=== PATIENT | male | born 1955 | race Caucasian/White ===

== ENCOUNTER 2016-06-03 15:41 | Inpatient (IN) | payer MEDICARE, OTHER ==
[~2016-06-03] VITALS: Ht 182.9 cm; Wt 72.6 kg
[~2016-06-03 15:41] MED LIST: METHADONE HCL5 MG PO; OXYCONTIN10 MG ORAL
--- NOTE | 2016-06-03 16:06 | Emergency Room Report ---
History of Present Illness General Chief Complaint: Overdose Source: Patient, EMS Present Illness HPI Patient is a 60-year-old male brought in by ambulance after reported overdose on methamphetamine and GHB. The patient reportedly ingested 1 hour prior to arrival. History was obtained from EMS. The patient was noted to have prior history of HIV. He has no known drug allergies. Patient was started on supplemental oxygen as well as a nasal trumpet. Allergies: Coded Allergies: No Known Allergies (Unverified , 08/16/15) Patient History Past Medical History: see triage record Reviewed Nursing Documentation: PMH: Agreed, PSxH: Agreed Review of Systems All Other Systems: negative except mentioned in HPI Physical Exam Vital Signs Date Time Temp Pulse Resp B/P Pulse Ox O2 Delivery O2 Flow Rate FiO2 06/03/16 15:39 97.5 60 16 121/76 100 Simple Mask Sp02 EP Interpretation: reviewed, normal Head: normocephalic, atraumatic ENT: other Neck: normal inspection, full range of motion, supple, no bony tend Respiratory: normal inspection, lungs clear, normal breath sounds, no respiratory distress, no retraction, no wheezing Cardiovascular #1: regular rate, rhythm, no edema Gastrointestinal: normal inspection, normal bowel sounds, non tender, soft, no guarding, no hernia Genitourinary: no CVA tenderness Musculoskeletal: normal inspection, back normal, normal range of motion Neurologic: other - GCS [id number] Psychiatric: normal inspection, judgement/insight normal, mood/affect normal Skin: normal inspection, normal color, no rash Procedures Critical Care Time Critical Care Time Patient had a critical medical condition which untreated could potentially result in life or limb threatening injury. Total critical care time excluding procedures approximately 45 minutes. Medical Decision Making Diagnostic Impression: Primary Impression: Narcotic overdose Additional Impression: HIV (human immunodeficiency virus infection) ER Course Patient presented for overdose. The differential diagnosis included was not limited to hypoglycemia, toxic ingestion, and aspirin overdose, suicide attempt among others. The patient was noted to have an intact gag reflex. The patient was reportedly ingested GHB and appears to be somewhat altered. The patient was given IV Narcan.The patient was given IV fluids. The patient appeared to have some improvement in his gag reflex during the time in emergency department. Dr. Andrea Conti was contacted for inpatient management due to the patient's alteration of mental status. Labs Test 06/03/16 15:56 06/03/16 16:11 06/03/16 17:20 06/03/16 20:13 Arterial Blood pH 7.370 (7.350-7.450) Arterial Blood Partial Pressure CO2 34.4 mmHg (35.0-45.0) Arterial Blood Partial Pressure O2 99.5 mmHg (75.0-100.0) Arterial Blood HCO3 19.6 mmol/L (22.0-26.0) Arterial Blood Oxygen Saturation 96.5 % (92.0-98.0) Arterial Blood Base Excess -4.6 Nate Test Positive White Blood Count 9.8 K/UL (4.8-10.8) Red Blood Count 4.96 M/UL (4.70-6.10) Hemoglobin 15.6 G/DL (14.2-18.0) Hematocrit 49.1 % (42.0-52.0) Mean Corpuscular Volume 99 FL (80-99) Mean Corpuscular Hemoglobin 31.4 PG (27.0-31.0) Mean Corpuscular Hemoglobin Concent 31.7 G/DL (32.0-36.0) Red Cell Distribution Width 14.7 % (11.6-14.8) Platelet Count 763 K/UL (150-450) Mean Platelet Volume 4.5 FL (6.5-10.1) Neutrophils (%) (Auto) 63.6 % (45.0-75.0) Lymphocytes (%) (Auto) 23.1 % (20.0-45.0) Monocytes (%) (Auto) 12.2 % (1.0-10.0) Eosinophils (%) (Auto) 0.1 % (0.0-3.0) Basophils (%) (Auto) 1.1 % (0.0-2.0) Sodium Level 138 mEQ/L (135-145) Potassium Level 4.6 mEQ/L (3.4-4.9) Chloride Level 95 mEQ/L (98-107) Carbon Dioxide Level 21 mEQ/L (20-30) Anion Gap 22 (5-15) Blood Urea Nitrogen 25 mg/dL (7-23) Creatinine 1.9 mg/dL (0.7-1.2) Estimat Glomerular Filtration Rate 36.3 mL/min (>60) Glucose Level 102 mg/dL (74-106) Calcium Level 10.0 mg/dL (8.6-10.2) Total Bilirubin 0.6 mg/dL (0.0-1.2) Direct Bilirubin 0.1 mg/dL (0.1-0.3) Aspartate Amino Transf (AST/SGOT) 55 U/L (5-40) Alanine Aminotransferase (ALT/SGPT) 42 U/L (3-41) Alkaline Phosphatase 62 U/L (40-129) Total Creatine Kinase 293 U/L (38-174) Total Protein 7.8 g/dL (6.6-8.7) Albumin 4.3 g/dL (3.5-5.2) Serum Alcohol < 10 mg/dL Urine Opiates Screen Negative (NEGATIVE) Urine Barbiturates Screen Negative (NEGATIVE) Phencyclidine (PCP) Screen Negative (NEGATIVE) Urine Amphetamines Screen Positive (NEGATIVE) Urine Benzodiazepines Screen Positive (NEGATIVE) Urine Cocaine Screen Negative (NEGATIVE) Urine Marijuana (THC) Screen Negative (NEGATIVE) Lactic Acid Level 1.90 mmol/L (0.66-2.22) Last Vital Signs Date Time Temp Pulse Resp B/P Pulse Ox O2 Delivery O2 Flow Rate FiO2 06/03/16 15:39 97.5 60 16 121/76 100 Simple Mask Status: unchanged Disposition: ADMITTED INPATIENT Condition: Critical Ke So Jun 03, 2016 16:06
[2016-06-03] MEDS ORDERED: Naloxone 1mg/ml 2ml IVP ONE (16:15)
[2016-06-03 16:22] LABS: ABG ALLEN TEST POSITIVE; ABG BASE EXCESS -4.6; ABG PCO2 34.4 mmHg (35.0-45.0)
[2016-06-03 16:31] LABS: BASOPHILS % (AUTO) 1.1 % (0.0-2.0); EOSINOPHILS % (AUTO) 0.1 % (0.0-3.0); LYMPHOCYTES % (AUTO) 23.1 % (20.0-45.0); MEAN CORPUSCULAR HEMOGLOBIN 31.4 PG (27.0-31.0); MEAN CORPUSCULAR HGB CONC 31.7 G/DL (32.0-36.0); MEAN CORPUSCULAR VOLUME 99 FL (80-99); MEAN PLATELET VOLUME 4.5 FL (6.5-10.1); MONOCYTES % (AUTO) 12.2 % (1.0-10.0); NEUTROPHILS % (AUTO) 63.6 % (45.0-75.0); PLATELET COUNT 763 K/UL (150-450); RED BLOOD COUNT 4.96 M/UL (4.70-6.10); RED CELL DISTRIBUTION WIDTH 14.7 % (11.6-14.8); WHITE BLOOD COUNT 9.8 K/UL (4.8-10.8)
[2016-06-03 16:44] LABS: BILIRUBIN,DIRECT 0.1 mg/dL (0.1-0.3); CREATININE 1.9 mg/dL (0.7-1.2); GLOMERULAR FILTRATION RATE 36.3 mL/min (>60); POTASSIUM 4.6 mEQ/L (3.4-4.9); TOTAL PROTEIN 7.8 g/dL (6.6-8.7)
[2016-06-03 18:13] VITALS: BP 141/74
[2016-06-03] MEDS ORDERED: D5 1/2NS w/KCl 20mEq 1,000 ML IV SCH (19:30)
[2016-06-03] MEDS ORDERED: Ampicillin/Sulbactam Sod 3 GM in NS 100 ML IVPB ONE (20:15)
[2016-06-03 22:00] VITALS: BP 122/82
[2016-06-03] MEDS ORDERED: LORazepam Inj 2mg/ml 1ml IV PRN ×2 (22:30→22:35)
[2016-06-03 23:00] VITALS: BP 131/95
[2016-06-03] MEDS ORDERED: D5NS 1,000 ML IV SCH (23:00)
[2016-06-04] VITALS (11 sets, daily range): BP systolic 119–131; BP diastolic 70–86
[2016-06-04 05:21] LABS: CALCIUM 9.2 mg/dL (8.6-10.2); CREATININE 1.3 mg/dL (0.7-1.2); GLOMERULAR FILTRATION RATE 56.3 mL/min (>60); POTASSIUM 4.4 mEQ/L (3.4-4.9)
[2016-06-04 05:56] LABS: BASOPHILS % (AUTO) 0.8 % (0.0-2.0); EOSINOPHILS % (AUTO) 0.1 % (0.0-3.0); LYMPHOCYTES % (AUTO) 17.1 % (20.0-45.0); MEAN CORPUSCULAR HEMOGLOBIN 31.4 PG (27.0-31.0); MEAN CORPUSCULAR HGB CONC 32.1 G/DL (32.0-36.0); MEAN CORPUSCULAR VOLUME 98 FL (80-99); MEAN PLATELET VOLUME 4.4 FL (6.5-10.1); MONOCYTES % (AUTO) 12.9 % (1.0-10.0); NEUTROPHILS % (AUTO) 69.1 % (45.0-75.0); PLATELET COUNT 792 K/UL (150-450); RED BLOOD COUNT 4.84 M/UL (4.70-6.10); RED CELL DISTRIBUTION WIDTH 14.2 % (11.6-14.8); WHITE BLOOD COUNT 15.3 K/UL (4.8-10.8)
--- NOTE | 2016-06-04 08:13 | Consultation ---
Consult Note Consult Note ID CONSULT: Elliot# [id number] Assessment/Plan ASSESSMENT: 60 y/o male with: // Acute leukocytosis, afebrile - suspect stress response. No localizing s/sx infection - risk aspiration // HIV / AIDS, on unknown cART - CD4 reportedly >600, undetectable // GHB overdose, polysubstance abuse // Elevated LFTs / transaminitis - mild // ALKA - improved // Thrombocytosis // Chronic pain syndrome / OA / neuropathy, on methadone // MDD // NKDA // Full Code PLAN: - monitor pt off of ABX - re-start cART if verified, f/u with outpt HIV provider - f/u cultures - monitor CBC, temperatures - monitor BMP - monitor CXR - withdrawal precautions Thanks! Will follow CARINE PUTNAM Jun 04, 2016 08:13
[2016-06-04] MEDS ORDERED: Heparin 5000 units/ml inj SUBQ SCH (09:00)
[2016-06-04] MEDS ORDERED: Pantoprazole Inj IVP SCH (09:00)
[2016-06-04] MEDS ORDERED: Thiamine 100mg tab ORAL SCH (09:00)
--- NOTE | 2016-06-04 09:26 | Consultation ---
Consult Note Assessment/Plan [facility] DICT # [id number] JUJU MELCHOR M.D. Jun 04, 2016 09:26
--- NOTE | 2016-06-04 10:25 | Diagnostic Imaging Report ---
Indication: SOB Technique: One view of the chest Comparison: 08/16/2015 Findings: Previously demonstrated right basilar infiltrate is no longer evident. Lungs and pleural spaces are currently clear. There may be some chronic central bronchial wall thickening. Heart size is upper limits normal Impression: No acute process
[2016-06-04] MEDS ORDERED: 1/2 NS 1000ml IV ONE (10:29)
--- NOTE | 2016-06-04 17:37 | Consultation ---
DATE OF CONSULTATION: 06/04/2016 INFECTIOUS DISEASE CONSULTATION REQUESTING PHYSICIAN: Andrea Conti M.D. REASON FOR CONSULTATION: AIDS. HISTORY OF PRESENT ILLNESS: This is a 60-year-old male with a history of HIV/AIDS, on combination of antiretroviral therapy with a reported CD4 count more than 600 and undetectable, admitted on 06/03/2016 after overdosing on GHB. The patient was initially afebrile without leukocytosis, but developed leukocytosis of 15.3 this morning. He denies fevers, chills, headache, cough, congestion, runny nose, sore throat, chest pain, abdominal pain, nausea, vomiting, diarrhea, dysuria or penile discharge. He received Unasyn x1 in the emergency room. Blood cultures are pending as his chest x-ray. ID now consulted to assist in management. PAST MEDICAL HISTORY: 1. HIV/AIDS, on unknown combination of antiretroviral therapy with a reported CD4 count more than 600 and undetectable. 2. Peripheral neuropathy. 3. Osteoarthritis. 4. Chronic pain syndrome. 5. Depression. PAST SURGICAL HISTORY: None. MEDICATIONS: 1. Status post Unasyn x1. 2. Protonix. 3. Heparin. 4. Multivitamin. 5. Thiamine. 6. Folate. ALLERGIES: No known drug allergies. SOCIAL HISTORY: The patient is homosexual and has a history of polysubstance abuse. FAMILY HISTORY: Noncontributory. REVIEW OF SYSTEMS: As per history of present illness. Ten systems reviewed. All pertinent positives and negatives noted. PHYSICAL EXAMINATION: GENERAL: No apparent distress. Nontoxic appearing. VITAL SIGNS: Maximum temperature 98.9 degrees, blood pressure 129/80, heart rate 110, respiratory rate 14, and saturating 100% on two liters nasal cannula. HEENT: No thrush. CARDIOVASCULAR: Tachycardic. No murmurs. PULMONARY: Clear to auscultation bilaterally. ABDOMEN: Bowel sounds present. Soft, nondistended, and nontender. EXTREMITIES: No edema. NEUROLOGICAL: Alert and oriented x3. Nonfocal. LABORATORY AND DIAGNOSTIC DATA: White blood cell count 15.3 increased from 9.8, hemoglobin 15.2, and platelets 792,000. Sodium 136, potassium 4.4, chloride 100, bicarbonate 22, BUN 25, and and creatinine 1.3. Lactic acid 1.9. Creatine kinase 292. AST 55, ALT 42, and alkaline phosphatase 62. Total bilirubin 0.6. Albumin 4.3. Urine drug screen positive for amphetamines and benzodiazepines. Alcohol level negative. Microbiology, 06/03/2016, blood culture pending. Imaging, 06/03/2016, chest x-ray pending. ASSESSMENT: 1. Acute leukocytosis, afebrile, suspect stress response. No localizing signs or symptoms of infection. He is at risk for aspiration. 2. Human immunodeficiency virus/acquired immune deficiency syndrome, on unknown anti-retroviral therapy with CD4 count reportedly more than 600 and undetectable. 3. GHB overdose and polysubstance abuse. 4. Elevated liver function tests/transaminitis, mild. 5. Acute renal insufficiency, improved. 6. Thrombocytosis. 7. Chronic pain syndrome, on methadone. 8. No known drug allergies. 9. Full Code. PLAN: 1. Monitor the patient off of antibiotics. 2. Restart combination of antiretroviral therapy and follow up with the patient's HIV provider at discharge. 3. Follow up cultures. 4. Monitor CBC and temperatures. 5. Monitor BMP. 6. Monitor chest x-ray. 7. Withdrawal precautions. Thank you. We will follow. Benji Yan M.D. DR: CEE JOB#: [id number] CC: Aundrea Stanton M.D. Arash Alborzi, M.D
--- NOTE | 2016-06-04 19:17 | Consultation ---
DATE OF CONSULTATION: PULMONARY CRITICAL CARE CONSULTATION: REFERRING PHYSICIAN: Andrea Conti M.D. REASON FOR CONSULTATION: Critical care management. HISTORY OF PRESENT ILLNESS: The patient is a 60-year-old male with a history of AIDS and prior overdoses, who presented to the ED one hour after overdosed on methamphetamine and GHB. It is unclear how much he took, but upon arrival in the emergency department, he was confused and then combative. He was able to protect his airway. gag reflex. He was given Narcan, IV fluids without any relief. He also had evidence of acute kidney injury. Decision was made not to intubate, the patient transferred to the ICU and overnight he did well. His white count on admission was 9.8, hemoglobin 15.6, and platelet count 763,000. This morning, white count 15.3. ABG on admission 7.37/34/99/19/96. His creatinine was 1.9, this improved with IV fluids 1.3. His tox screen was positive for amphetamines and benzodiazepines. PAST MEDICAL HISTORY: 1. HIV. 2. Peripheral neuropathy. 3. Arthritis. 4. Chronic pain syndrome on methadone. 5. Major depressive disorder. MEDICATIONS: Prior to admission, medications complete list is unknown, but he is on methadone, oxycodone, and anti-retroviral therapy. Current medications reviewed. ALLERGIES: No known drug allergies. SOCIAL HISTORY: He endorses occasional drug use. Denies any current tobacco or alcohol use. FAMILY HISTORY: Noncontributory. He has a male partner. REVIEW OF SYSTEMS: Negative other than the history of present illness. PHYSICAL EXAMINATION: VITAL SIGNS: Temperature 98.9 degrees, pulse 113, blood pressure 130/71, respiratory 24, and saturating 99% on two liters. GENERAL: He is a well-developed and well-nourished male, in no acute distress. Awake, alert, and oriented x3. HEENT: Normocephalic and atraumatic. Oropharynx is moist. NECK: Supple without lymphadenopathy or jugular venous distention. CHEST: Clear to auscultation bilaterally without wheezing, rales, or rhonchi. HEART: Regular rhythm. No murmurs, rubs, or gallops. ABDOMEN: Soft and nontender. EXTREMITIES: No cyanosis, clubbing, or edema. ANCILLARY DATA: White count 9.8, on admission 15.3, hemoglobin 15.6, and platelet count 763,000. ABG 7.37/34/99/19/96. Sodium 138, potassium 4.6, chloride 95, bicarb 21, BUN 25, creatinine 1.1, GFR is 36.3, glucose 102. Lactic acid 1.9. Calcium 10. Total bilirubin 0.6, direct 0.1, AST 55, ALT 42, alkaline phosphatase 62, CK 293, total protein 7.8, and albumin 4.3. Urine toxicology positive for amphetamines and benzodiazepines. Cultures are pending. Chest x-ray is not available for review to me but per ER doctor, there may be an early perihilar lower left base infiltrate. ASSESSMENT: The patient is a 60-year-old male with a history of acquired immune deficiency syndrome (per reports CD4 count greater than 400) presenting with altered mental status secondary to gamma-hydroxybutyrate and amphetamine overdose. He also has leukocytosis which is likely a stress response versus early pneumonic process (possible aspiration) . Nonetheless, he is markedly improved with intravenous fluids and rest overnight. He is afebrile. Vitals are stable and is actually requesting to be discharged. PROBLEM LIST: 1. Altered mental status secondary to amphetamine and gamma-hydroxybutyrate overdose; resolved. 2. Acute kidney injury likely prerenal; resolved with IV fluids. 3. Mild elevation of transaminases. 4. Leukocytosis likely stress response. 5. Per report possible early pneumonic process, but the patient without any signs or symptoms of respiratory illness. 6. Chronic pain syndrome. 7. Osteoarthritis. 8. Neuropathy. 9. Major depressive disorder. 10. Methadone dependence. TREATMENT PLAN: 1. Continue IV fluid hydration. 2. Monitor mental status. 3. Multivitamin/thiamine/folate. 4. Follow up cultures. 5. Follow up Infectious Disease recommendations and resume anti-retroviral therapy. 6. DVT prophylaxis; heparin subcutaneous. 7. Gastrointestinal prophylaxis; PPI. 8. Follow up renal wrecks. 9. Consider Psychiatry evaluation and social work evaluation. Dr. Conti, thank you for allowing me to assist in the care of your patient. If I may be of any assistance, please do not hesitate to ask. Alec Mcclure M.D. DR: Marielos JOB#: [id number] CC:
--- NOTE | 2016-06-06 13:00 | Discharge Summary ---
Discharge Summary Hospital Course Date of Admission Jun 03, 2016 at 19:23 Date of Discharge Jun 04, 2016 at 10:30 Admitting Diagnosis overdose ghb, hiv HPI Jericho Guillaume is a 60 year old male who was admitted on Jun 03, 2016 at 19:23 for Overdose Ghb, Hiv Hospital Course dc summary dictated # [id number] Discharge Discharge Disposition Patient was discharged to Discharge Diagnoses: Carlos (Noy)Kellie NP Jun 06, 2016 13:00
--- NOTE | 2016-06-07 00:18 | Discharge Summary 2 SIG ---
DATE OF ADMISSION: 06/03/2016 DATE OF DISCHARGE: 06/04/2016- signed against medical advice ADMITTING DIAGNOSES: Include, 1. Narcotic overdose. 2. Polysubstance abuse. 3. Human immunodeficiency virus status. DISCHARGE DIAGNOSES: Include, 1. Acute toxic encephalopathy, resolved. 2. Acute kidney injury, improved. 3. Leukocytosis, likely stress response. 4. Human immunodeficiency virus status. 5. Chronic pain syndrome. 6. Neuropathy. 7. Major depression. HOSPITAL COURSE BY PROBLEM LIST: 60-year-old male, was brought by ambulance after reported overdose on methamphetamines and GHB. Apparently, the patient ingested drugs 1 hour prior to arrival. The patient was unable to provide any history. The patient at that time was started on supplemental oxygen and was able to protect airway. ABG was stable. No need for intubation. The patient was transferred to ICU for close monitoring. Pulmonary consult as well as the ID consults were requested. Urine tox screen was positive for amphetamine and benzodiazepine. Initially, the patient had evidence of acute kidney injury. Creatinine pf 1.9 and BUN 25. Intravenous fluids started. The next day, creatinine down to 1.3. Acute tubular necrosis was likely also related to drug overdose, Upon arrival to emergency room, the patient was afebrile. No leukocytosis, but the next day WBC trended up to 15.3. However, the patient was afebrile. No clinical evidence of infection. Chest x-ray revealed no acute process. According to Infectious Disease doctor, leukocytosis was likely due to stress response. He recommended to keep the patient off antibiotics and observe . HAART therapy restarted. Supplemental oxygen and pulmonary toilet provided as needed. Pain management provided. The patient is chronically on methadone. a Acute toxic encephalopathy resolved as drugs wear off and the next day the patient signed against medical advice despite nurses advice to wait for the doctor. Upon signing agains medical advice the patient was awake, alert, and oriented. Vital signs were stable. Patient was told about risks and consequences of signing against medical advice, however he still insisted on signing. Prior to leaving, th patient was counseled on abstinence from the street drugs. Andrea Conti M.D. I have been assigned to dictate discharge summary on this account and I was not involved in the patient's management. Kellie Stephensalba NKonstantinPKonstantin DR: JARVIS JOB#: [id number] CC: YRN
--- NOTE | 2016-06-10 10:31 | Cardiology Report ---
APPROVED REPORT EKG Measurement Heart [id number] FL [id number] Sinus bradycardia Otherwise normal ECG
== END 2016-06-04 10:30 | disposition left against medical advice (07) | DRG 917 ==
LOC: ENRESERVDT → ENRESERVTM → EDBD 15:41 → EMR 16:26 → ICU 19:23 → EDBEDREQ 21:47
DX: T43.621A Poisoning by amphetamines, accidental (unintentional), initial encounter (principal); G92 Toxic encephalopathy; B20 Human immunodeficiency virus [HIV] disease; N17.9 Acute kidney failure, unspecified; T41.291A Poisoning by other general anesthetics, accidental (unintentional), initial encounter; G89.4 Chronic pain syndrome; G62.9 Polyneuropathy, unspecified; F32.9 Major depressive disorder, single episode, unspecified; F19.10 Other psychoactive substance abuse, uncomplicated; M19.90 Unspecified osteoarthritis, unspecified site; Z79.891 Long term (current) use of opiate analgesic
CPT/HCPCS: 36415; 36600; 71010; 80048; 80076; 80300; 80329; 82550; 82803; 82962; 83605; 85025; 87040; 87081; 93005; J2310

== ENCOUNTER 2018-10-21 05:23 | Inpatient (IN) | payer MEDICARE, OTHER ==
[~2018-10-21] VITALS: Ht 185.4 cm; Wt 81.6 kg
[2018-10-21] VITALS (16 sets, daily range): BP systolic 97–122; BP diastolic 64–81
[2018-10-21] MEDS ORDERED: ceFAZolin 1gm IVPB IVPB ONE ×2 (06:00)
[2018-10-21] MEDS ORDERED: celeBREX 200mg Cap **SURGERY PATIENTS ONLY ORAL ONE ×2 (06:00→06:43)
[2018-10-21] MEDS ORDERED: oxyCONTIN 20mg tab ORAL ONE ×2 (06:00→06:43)
[2018-10-21] MEDS ORDERED: LR 1000ml 1,000 ML IVLG SCH (06:26)
--- NOTE | 2018-10-21 06:29 | Anethesia Preoperative Eval ---
Anesthesia Pre-op PMH/ROS General Date of Evaluation: October 21, 2018 Time of Evaluation: 07:01 Anesthesiologist: Fariha ASA Score: ASA 3 Mallampati Score Class I : Soft palate, uvula, fauces, pillars visible Class II: Soft palate, uvula, fauces visible Class III: Soft palate, base of uvula visible Class IV: Only hard plate visible Mallampati Classification: Class II Surgeon: Latanya Diagnosis: L Knee Pain Surgical Procedure: L Knee Total Arthoplasty Anesthesia History: none Social History: drug use - Crystal Meth Family History: no anesthesia problems Allergies: Coded Allergies: No Known Allergies (Unverified , 08/16/15) Medications: see eMAR Patient NPO?: Yes NPO Date: October 20, 2018 NPO Time: 2358 Past Medical History Cardiovascular: Reports: HTN, other - HL Gastrointestinal/Genitourinary: Reports: GERD, other - BPH Neurologic/Psychiatric: Reports: CVA, depression/anxiety Hematology/Immune: Reports: other - HIV/AIDS, Rectal CA PSxH Narrative: Rectal SX, Toe Sx Anesthesia Pre-op Phys. Exam Physician Exam Last Vital Signs Date Time Temp Pulse Resp B/P (MAP) Pulse Ox O2 Delivery O2 Flow Rate FiO2 10/21/18 06:07 Room Air Constitutional: NAD Neurologic: CN 2-12 intact Cardiovascular: RRR Respiratory: CTA Airway Exam Mallampati Score: Class II MO: full ROM: limited Teeth: missing, intact Anesthesia Pre-op A/P Risk Assessment & Plan Assessment: ASA 3 Plan: GA, Spinal, Tranexamic Acid Status Change Before Surgery: No Pre-Antibiotics Dru Grams Ancef IV Given Within 1 Hr of Incision: Yes Time Given: 07:26 Lawrence Fried MD October 21, 2018 06:29
[2018-10-21] MEDS ORDERED: DiphenhydrAMINE 50mg/ml Inj IVP PRN (06:30)
[2018-10-21] MEDS ORDERED: oxyCODONE HCL/Acetaminophen 5/325mg ORAL PRN (06:30)
[2018-10-21] MEDS ORDERED: Atropine Sulfate 0.4mg/ml inj IVP PRN (06:30)
[2018-10-21] MEDS ORDERED: Meperidine 50mg/ml Inj(FOR RIGORS ONLY) IVP PRN (06:30)
[2018-10-21] MEDS ORDERED: fentaNYL 100 mcg/2 mL IV PRN (06:30)
[2018-10-21] MEDS ORDERED: LORazepam Inj 2mg/ml 1ml IV PRN (06:30)
[2018-10-21] MEDS ORDERED: Tranexamic Acid 1,000 MG in NS 65 ML IV ONE (06:30)
[2018-10-21] MEDS ORDERED: Midazolam 2mg/2ml Inj IVP PRN (06:30)
[2018-10-21] MEDS ORDERED: HYDROcodone/Acetamin 7.5/325 tab ORAL PRN (06:30)
[2018-10-21] MEDS ORDERED: Labetalol 5mg/ml 20ml vial IV PRN (06:30)
[2018-10-21] MEDS ORDERED: Ketorolac 30mg Inj IV PRN ×2 (06:30)
[2018-10-21] MEDS ORDERED: Metoclopramide 10mg/2ml Inj IVP PRN (06:30)
[2018-10-21] MEDS ORDERED: HYDROcodone/Acetamin 5/325 tab ORAL PRN (06:30)
[2018-10-21] MEDS ORDERED: Hydromorphone 0.5mg/0.5ml inj IVP PRN (06:30)
[2018-10-21] MEDS ORDERED: Duramorph PF 5mg/10ml amp ONE (06:31)
[2018-10-21] MEDS ORDERED: Bupivacaine 0.5% Inj 30 ml vial INJ ONE (06:31)
[2018-10-21] MEDS ORDERED: Lidocaine 1% Plain 30 ml INJ ONE (06:36)
[2018-10-21] MEDS ORDERED: Sodium Chloride 10ml vial INJ ONE (06:36)
[2018-10-21] MEDS ORDERED: Lidocaine 1% MPF 10mg/ml 5ml ONE (06:36)
[2018-10-21] MEDS ORDERED: Dexamethasone 4mg/ml vial ONE (06:36)
[2018-10-21] MEDS ORDERED: EPINEPHrine 1mg/1ml Amp ONE (06:37)
[2018-10-21] MEDS ORDERED: Alfentanil 2ml Inj ONE (06:44)
[2018-10-21] MEDS ORDERED: NeoSporin Gu Irrig 1ml Amp IRRIG ONE (06:52)
[2018-10-21] MEDS ORDERED: Bacitracin 50000 Units Vial ONE (06:52)
--- NOTE | 2018-10-21 06:58 | Pre-Procedure Note/Attestation ---
Pre-Procedure Note/Attestation Complete Prior to Procedure Planned Procedure: left Procedure Narrative: Left total knee arthroplasty Indications for Procedure Pre-Operative Diagnosis: left knee arthritis Attestation I attest that I discussed the nature of the procedure; its benefits; risks and complications; and alternatives (and the risks and benefits of such alternatives ), prior to the procedure, with the patient (or the patient's legal national sales representative). I attest that, if there was a reasonable possibility of needing a blood transfusion, the patient (or the patient's legal national sales representative) was given the [facility] standardized written summary, pursuant to the Skyler Jocy Blood Safety Act ([place] Health and Safety Code # 1645, as amended). I attest that I re-evaluated the patient just prior to the surgery and that there has been no change in the patient's H&P, except as documented below: NONE Lion Pelaez MD October 21, 2018 06:58
[2018-10-21] MEDS ORDERED: NS Irrig 1000ml ONE (07:00)
[2018-10-21] MEDS ORDERED: NS Irrig 2000ml IRRIG ONE (07:00)
[2018-10-21] MEDS ORDERED: LR 1000ml ONE (07:00)
[2018-10-21] MEDS ORDERED: Milk of Magnesia 30ml Ud ORAL PRN (07:00)
[2018-10-21] MEDS ORDERED: Propofol 200mg/20ml IV ONE (07:00)
[2018-10-21] MEDS ORDERED: Sterile Water Irrig 1000ml IRRIG ONE (07:00)
[2018-10-21] MEDS ORDERED: TADALAFIL5 M1 PO (07:05)
[2018-10-21] MEDS ORDERED: FLOMAX0.4 MG ORAL (07:05)
[2018-10-21] MEDS ORDERED: OXANDROLONE10 MG PO (07:05)
[2018-10-21] MEDS ORDERED: OMEPRAZOLE40 M1 ORAL (07:05)
[2018-10-21] MEDS ORDERED: PREZCOBIX 8001 EACH PO (07:05)
[2018-10-21] MEDS ORDERED: MYTESI PO (07:05)
[2018-10-21] MEDS ORDERED: MS CONTIN100 MG ORAL (07:05)
[2018-10-21] MEDS ORDERED: FENOFIBRATE145 M1 ORAL (07:05)
[2018-10-21] MEDS ORDERED: ISENTRESS400 MG ORAL (07:09)
[2018-10-21] MEDS ORDERED: SEROSTIM6 M1 SQ (07:09)
[2018-10-21] MEDS ORDERED: CLONAZEPAM2 MG PO (07:09)
[2018-10-21] MEDS ORDERED: TESTOSTERO200 MG/1 M IM (07:11)
[2018-10-21] MEDS ORDERED: EPZICOM TABLET1 EAC1 ORAL (07:11)
[2018-10-21] MEDS ORDERED: DIPHEN/ATROP PO (07:14)
[2018-10-21] MEDS ORDERED: ePHEDrine 50mg/ml Inj ONE (07:35)
--- NOTE | 2018-10-21 08:20 | Immediate Post-Op Evaluation ---
Immediate Post-Op Evalulation Immediate Post-Op Evalulation Procedure: L Total Knee Arthroplasty Date of Evaluation: October 21, 2018 Time of Evaluation: 09:59 IV Fluids: 1000 LR Blood Products: 0 Estimated Blood Loss: 50 Urinary Output: 0 Blood Pressure Systolic: 109 Blood Pressure Diastolic: 71 Pulse Rate: 93 Respiratory Rate: 16 O2 Sat by Pulse Oximetry: 98 Temperature (Fahrenheit): 97.8 Pain Score (1-10): 0 Nausea: No Vomiting: No Complications 0 Patient Status: awake, reacts, patent, none Hydration Status: adequate Dru Grams Ancef IV Given Within 1 Hr of Incision: Yes Time Given: 07:26 Lawrence Fried MD October 21, 2018 08:20
[2018-10-21] MEDS ORDERED: Flumazenil 0.1mg/ml 5ml Inj IV ONE (09:04)
--- NOTE | 2018-10-21 09:32 | Brief Operative Note ---
Immediate Post Operative Note Operative Note Chief Complaint: left knee pain Pre-op Diagnosis: left knee arthritis Procedure: left TKA Post-op Diagnosis: same as pre-op Findings: consistent w/pre-op dx studies Surgeon: md bandar Makeup Artist: macho eller Anesthesiologist: md checo Anesthesia: general Specimen: yes Complications: none Condition: stable Fluids: ns Estimated Blood Loss: minimal Drains: none Implant(s) used?: Yes - Lion Viramontes MD October 21, 2018 09:32
[2018-10-21] MEDS ORDERED: Rate Change PCA 1 Each MISC PRN (09:45)
[2018-10-21] MEDS ORDERED: PCA HYDROmorphone 30mg/30ml Syr IV PRN (09:46)
[2018-10-21] MEDS ORDERED: HYDROmorphone 1mg/ml Carpuject IVP PRN (10:00)
[2018-10-21] MEDS ORDERED: MS Contin 100mg tab ORAL SCH (11:00)
--- NOTE | 2018-10-21 11:04 | Diagnostic Imaging Report ---
Indication: Left knee pain 2 views of the left knee were obtained. Findings: Cemented total knee arthroplasty demonstrated. Alignment and position appear satisfactory. There is no fracture. There is air within the joint space and soft tissue swelling associated with recent surgery. IMPRESSION: Status post left total knee replacement. No radiographic evidence for complications.
[2018-10-21] MEDS: D5 1/2NS w/KCl 20mEq 1,000 ML IV SCH (14:27)
[2018-10-21] MEDS ORDERED: PCA Education Pamphlet MISC ONE (14:30)
--- NOTE | 2018-10-21 16:00 | Operative Note - Dictated ---
DATE OF OPERATION: 10/21/2018 PREOPERATIVE DIAGNOSIS: Left knee end-stage arthritis with medial compartment wear. POSTOPERATIVE DIAGNOSIS: Left knee end-stage arthritis with medial compartment wear. PROCEDURE: Left total knee arthroplasty using Gill Triathlon system, size 7 cruciate retaining femur, size 7 tibial base plate, size 9 mm Triathlon X3 deep-dish poly insert as well as a 36 mm patella. SURGEON: Lion Pelaez M.D. GED TEACHER: Kendra Cohen PA-C. ANESTHESIOLOGIST: Lawrence Fried M.D. ANESTHESIA: Spinal anesthesia combined with general anesthesia. ESTIMATED BLOOD LOSS: Less than 100 mL. TOURNIQUET TIME: 70 minutes. COMPLICATIONS: None. BRIEF HISTORY: The patient is a pleasant 63-year-old gentleman who has had ongoing left knee pain. He was treated conservatively for 2 years and he failed. He had received some injection, physical therapy, anti-inflammatory, and continued to be painful. After full discussion of risks, benefits of surgery, and complications associated with it including infection, bleeding, neurovascular complication, possibility of continued pain, possibility of loss of motion, possibility of infection, requiring resection arthroplasty, possibly of DVT, PE, and continued pain despite surgery and prosthesis malalignment, the patient opted for surgical treatment as described above. OPERATIVE PROCEDURE: The patient was brought to the operating table and was placed supine. All pressure points were well padded. General LMA anesthesia was induced and spinal anesthesia was induced by the anesthesiologist for postoperative pain management. The left leg was then prepped and draped in usual sterile fashion and it was exsanguinated. Tourniquet was inflated to 275 mmHg. Standard anterior approach to the knee was undertaken. The medial parapatellar arthrotomy was performed and the medial release of the deep fibers of the MCL was performed using an osteotome. At this point, fat pad was removed and the menisci were removed. The knee was then flexed and the ACL and PCL were resected. At this point, intramedullary access into the femur was obtained and intramedullary guide was then placed in. A distal femoral cut was performed in standard thickness and 5 degrees of valgus. Once this was completed, measurements were made and size 7 appeared to be the correct side. The cutting guide was placed in about 3 degrees of external rotation and anterior, posterior, and chamfer cuts were performed without any complications. There was no notching of the femur. At this point, the femoral trial was applied and appeared to be fitting very well and very tight. The PEG holes were drilled. At this point, care was given to the tibia. The anterior tibial crest was palpated. Appropriate retractors were placed in posteriorly, medially, and laterally. The remnant of any meniscus was removed. At this point, the extramedullary guide was used to recreate anatomical axis using anterior crest of the tibia guide. The thickness of the cut was measured by taking 2 mm off the most involved side, which was the medial side. Once the alignment was good, the cutting guide was then fixed to the tibia using pins. The area was remeasured and the anatomical axis as judged by a drop margoth as well as the thickness appeared to be perfect. At this point, the tibial cut was performed protecting medial, lateral, and posterior structures. Once this was completed, the tibial base plate was applied and 7 mm base plate appeared to be right side. This was provisionally stabilized using some pins and a trial component of the femur and 9 mm poly was inserted. The range of motion was checked and there was excellent at 0, 30 degrees, 45 degrees, and 90 degrees of flexion. Stability was checked at 0, 30 degrees, 45 degrees, and 90 degrees of flexion was stable. At this point, the trial component was removed. The tibial stem was punched. Care was given to the patella. At this time, the patella was everted. It measured 27 mm. The standard patellar cut was performed and 15 mm patella was remaining. The sizing of the patella was performed and 36 size appeared to the right side. The peg holes were drilled. At this point, all trial components were applied and the patellofemoral range of motion and patellofemoral tracking was checked and appeared to be perfect. At this point, all trial components were removed and knee was thoroughly irrigated using Simpulse irrigation and cement was mixed and the tibial component, femoral component, and patella components were all cemented without any complication. The cement was hardened under compression, both on the patella side and on the femur and tibia side. Once the cement hardened, all excess cement was removed. Trialing was performed and 9 mm poly insert appeared to be the right size with excellent range of motion and excellent stability as described previously. The wounds were thoroughly irrigated using copious amount of fluid. A 9 mm polyethylene was then locked in without any complication. Range of motion and stability was checked after the final poly was placed and appeared to be perfect. At this point, the tourniquet was deflated. All small bleeders were stopped. The extensor mechanism was closed using #1 Vicryl suture. Subcutaneous tissue was closed using 2-0 Vicryl suture. Skin was closed using 3-0 Monocryl suture. Dermabond was applied and sterile dressing was applied. The patient was taken to recovery in stable condition. All lap counts and instrument counts were correct. Lion Pelaez M.D. DR: WILIAM JOB#: [id number] CC:
[2018-10-21] MEDS: ceFAZolin sod 1 GM in D5W 55 ML IV SCH ×2 (16:06→22:24)
[2018-10-21] MEDS: Aspirin Baby 81mg ORAL SCH ×2 (17:52→18:00)
[2018-10-21] MEDS: Docusate 100mg cap ORAL SCH ×2 (17:52→18:00)
[2018-10-21] MEDS: MS Contin 100mg tab ORAL SCH (18:26)
[2018-10-21] MEDS: PCA shift volume MISC SCH (19:20)
[2018-10-21] MEDS ORDERED: Tamsulosin 0.4mg cap ORAL SCH ×2 (21:00)
--- NOTE | 2018-10-21 23:13 | History & Physical ---
History of Present Illness General Date patient seen: October 21, 2018 Time patient seen: 23:07 Reason for Hospitalization: left knee arthroplasty Present Illness HPI this is an unfortuante male wihtbenita o fHIV for many years historyof neuropathy chronic norcotic dependence on 100 mg of morphine bid who is status post knee [id number] he denies any chest pain says the pain medicaitn is horse shit that he is getting int hospital. Allergies: Coded Allergies: No Known Allergies (Unverified , 08/16/15) Medication History Scheduled Abacavir Sulfate/Lamivudine (Epzicom Tablet), 1 TAB ORAL DAILY, (Reported) Clonazepam (Clonazepam), 2 MG PO BED, (Reported) Darunavir/Cobicistat (Prezcobix 800 mg-150 mg Tablet), 1 EACH PO DA, (Reported) Fenofibrate Nanocrystallized (Fenofibrate), 145 MG ORAL DAILY, (Reported) Morphine Sulfate (Morphine Sulfate ER), 100 MG ORAL DA, (Reported) Omeprazole (Omeprazole), 40 MG ORAL DAILY, (Reported) Oxandrolone (Oxandrolone), 10 MG PO DA, (Reported) Raltegravir (Isentress), 400 MG ORAL EVERY 12 HOURS, (Reported) Somatropin (Serostim), 6 MG SQ DA, (Reported) Tadalafil (Tadalafil), 5 MG PO DA, (Reported) Tamsulosin HCl (Flomax), 0.4 MG ORAL DAILY, (Reported) Testosterone Cypionate (Testosterone Cypionate), 200 MG IM Q 2 WEEKS, (Reported) [Diphen/Atrop], 2.5 MG PO DA, (Reported) [Mytesi], 125 MG PO BID, (Reported) Discontinued Medications Methadone Hcl* (Methadone*), 5 MG PO DAILY, (Reported) Discontinued Reason: Pt stopped taking med Oxycodone Hcl Er* (Oxycontin*), 10 MG ORAL EVERY 12 HOURS, (Reported) Discontinued Reason: Pt stopped taking med Patient History History Provided By: Patient Healthcare decision maker PATIENT Resuscitation status Full Code Advanced Directive on File Yes Review of Systems Review of Symptoms General ROS: onmedicaitn for hiv wasting syndrome Psychological ROS: on alonazepam Ophthalmic ROS: no visual changes or eye irritation ENT ROS: no nasal congestion, hearing loss, dizziness Allergy and Immunology ROS: no allergic symptoms or urticaria Hematological and Lymphatic ROS: no swollehas HIV Endocrine ROS: no polyuria, polydipsia, weight changes, temperature intolerance Respiratory ROS: no cough, shortness of breath, or wheezing Cardiovascular ROS: no cheswt pain no sob Neurological ROS: no TIA or stroke symptoms Dermatological ROS: no new or changing skin lesions, rashes or pruritis Physical Exam Physical Exam General appearance: alert, cooperative, no distress, appearsyonger that stated age Head: Normocephalic, without obvious abnormality, atraumatic Eyes: conjunctivae/corneas clear. Throat: Lips, mucosa, and tongue normal. T Neck: supple,no jvd Heart: regular rate and rhythm, S1, S2 normal Abdomen: soft, non-tender. Bowel sounds normal. Extremities: left knee immobloizer in place Skin: Skin color, texture, turgor normal. No rashes or lesions Neurologic: Grossly normal Last 24 Hour Vital Signs Date Time Temp Pulse Resp B/P (MAP) Pulse Ox O2 Delivery O2 Flow Rate FiO2 10/21/18 20:00 98.6 102 22 116/77 (90) 98 10/21/18 19:54 97 Nasal Cannula 2.0 28 10/21/18 19:33 18 10/21/18 16:00 98.2 85 20 97/69 (78) 98 10/21/18 15:33 18 10/21/18 15:03 18 10/21/18 14:33 18 10/21/18 14:20 98.0 82 20 98/64 (75) 96 10/21/18 14:18 18 10/21/18 14:03 18 10/21/18 13:48 18 10/21/18 13:20 98.0 88 20 103/67 (79) 95 10/21/18 12:20 98.0 88 20 103/67 (79) 95 10/21/18 11:50 98.4 93 20 102/66 (78) 94 10/21/18 11:45 98.2 85 18 104/75 (85) 96 10/21/18 11:20 97.6 10/21/18 11:20 97.6 10/21/18 11:15 18 10/21/18 11:00 97.6 81 17 113/76 97 Nasal Cannula 3 10/21/18 11:00 16 10/21/18 10:50 17 10/21/18 10:45 93 18 108/75 97 Nasal Cannula 3 10/21/18 10:30 81 17 101/69 96 Nasal Cannula 3 10/21/18 10:20 80 14 106/68 97 Nasal Cannula 3 10/21/18 10:10 81 14 103/67 95 Nasal Cannula 3 10/21/18 10:00 82 15 110/73 96 Nasal Cannula 3 10/21/18 09:55 86 14 111/77 99 Simple Mask 6 10/21/18 09:48 97.8 87 16 105/70 97 Simple Mask 6 10/21/18 09:47 93 16 98 10/21/18 06:07 Room Air 10/21/18 06:00 98.2 83 20 122/81 (95) 96 Height (Feet): 6 Height (Inches): 1.00 Weight (Pounds): 168 Medications Current Medications Medications (Trade) Dose Ordered Sig/Lalitha Route PRN Reason Start Time Stop Time Status Last Admin Dose Admin Acetaminophen (Tylenol) 650 mg Q4H PRN ORAL temp>100.2 or headache 10/21/18 07:00 11/20/18 06:59 Aspirin (ASA) 81 mg BID ORAL 10/21/18 18:00 11/20/18 17:59 Cefazolin Sodium 1 gm/Dextrose 55 ml @ 110 mls/hr Q8H IV 10/21/18 15:30 10/21/18 23:59 10/21/18 22:24 Clonazepam (KlonoPIN) 2 mg Q8H PRN ORAL anxiety and insomnia 10/21/18 10:00 10/28/18 09:59 10/21/18 22:31 Dextrose/ Electrolytes 1,000 ml @ 75 mls/hr [id number] IV 10/21/18 13:00 11/20/18 12:59 10/21/18 14:27 Docusate Sodium (Colace) 100 mg THREE TIMES A DAY ORAL 10/21/18 18:00 11/20/18 17:59 Fenofibrate (Tricor) 145 mg DAILY ORAL 10/22/18 09:00 11/21/18 08:59 Ferrous Sulfate (Feosol) 325 mg THREE TIMES A DAY ORAL 10/21/18 18:00 11/20/18 17:59 10/21/18 17:52 Finasteride (Proscar) 5 mg DAILY ORAL 10/22/18 09:00 11/21/18 08:59 Hydromorphone HCl 30 ml @ 0 mls/hr Q24H PRN IV For Pain 10/21/18 09:46 10/23/18 09:45 10/21/18 10:50 Hydromorphone HCl (Dilaudid) 1 mg Q3H PRN IVP pain 4-10 10/21/18 10:00 10/28/18 09:59 Magnesium Hydroxide (Mom) 30 ml DAILYPRN PRN ORAL Constipation 10/21/18 07:00 11/20/18 06:59 Miscellaneous Medication (WEB MARKETING ANALYST Rate Change) 1 ea DAILY PRN MISC WEB MARKETING ANALYST RATE CHANGE 10/21/18 09:45 10/23/18 09:44 Miscellaneous Medication (WEB MARKETING ANALYST shift volume) 1 ea Q12HR@0700,1900 MISC 10/21/18 19:00 10/23/18 18:59 10/21/18 19:20 Morphine Sulfate (MS Contin) 100 mg Q12HR@0600,1800 ORAL 10/21/18 18:00 10/28/18 17:59 10/21/18 18:26 Naloxone HCl (Narcan) 0.1 mg PRN IV . 10/21/18 09:45 10/23/18 09:44 Ondansetron HCl (Zofran) 4 mg Q4H PRN IV Nausea & Vomiting 10/21/18 10:00 11/20/18 09:59 Pantoprazole (Protonix) 40 mg DAILY ORAL 10/22/18 09:00 11/21/18 08:59 Tamsulosin HCl (Flomax) 0.4 mg BEDTIME ORAL 10/21/18 21:00 11/20/18 20:59 10/21/18 21:26 Assessment/Plan Status Narrative s/p left knee arthroplasty perio[perative antibiotic prophyalxis post operative dvt prophyalxis please ntoe he has been on testostrone he is likley to have more periopertaive bleeding follow olya high pain medicaitno preop avoid givieng too [facility] pain medicaiotn Assessment/Plan: S/P TKR PERIOPERATIVE BLOO DLOSS ANEMIA PAINCONTROL MONITOR CBC DVT PROPHYAL;XIS MONITOR AND FOLLOW [facility] Hospital declaration INPATIENT level of care is warranted for this patient because patient is a 89 year old with who presents with suspicion of . I have a high level of concern because . Patient is at high risk for . Plan of care/treatment include . Patient care is expected to be greater than 2 midnights. OBSERVATION level of care is warranted for this patient. Patient is a 89 year old with who presents with . Patient will be admitted for 1 midnight, but if additional night(s) is/are necessary, patient will be converted to inpatient status for the entire hospitalization Disposition: Once the patient is stable to leave the hospital, I anticipate the patient will likely be discharged to the following environment: Estimated discharge date: I spent 70 minutes on this patient's case, and minutes was dedicated to counseling and/or care coordination. MIPS (Merit-based Incentive Payment System) Applicable CPT: 24772, 48344 CHECK ALL THAT ARE MET: Measure #5 (CHF): All ages. Prescribe WALI/ARB upon discharge for patients with left ventricular systolic dysfunction. If not, the reason is clearly documented in the medical chart. Measure #8 (CHF): All ages. Prescribe a beta sloan upon discharge for patients with left ventricular systolic dysfunction. If not, the reason is clearly documented in the medical chart. Measure #47 Advance care plan or surrogate decision maker documented in the medical record. Measure #130 The provider has documented, updated, or reviewed the patients current medication list and has documented it in the patients note. Measure #374 (All): Send report to referring provider. Measure #407(Sepsis due to MSSA bacteremia): Age 18+ Patient treated with a beta-lactam antibiotic (Nafcillin, Oxacillin or Cefazolin) as definitive therapy. MEDICAL COMPLEXITY High complexity medical decision making (need 2/3 categories) Problem - need 4 points Acute/new problem with new plan for workup (4 points, 1 max) Acute/new problem without additional workup (3 points, 1 max) Unstable chronic problem actively being managed (2 point each, 2 max) Stable chronic problem actively being managed (1 point each, 2 max) Self-limited/transient process (constipation, muscle ache, etc) (1 point each , 2 max) Data - need 4 points Reviewed labs/imaging studies (1 points, 2 max) Independent review of imaging (EKG, xrays, etc) (2 points, 2 max) Discussed case with consult/other MD/RN (2 points, 2 max) High Risk - qualify if have one of the following: Severe exacerbation of acute problem, acute mental status change, IV narcotics , monitoring drug levels (vancomycin, INR, tacrolimus etc) Damian Johnston MD October 21, 2018 23:13
[2018-10-22] VITALS (12 sets, daily range): BP systolic 114–141; BP diastolic 73–96
[2018-10-22] MEDS: D5 1/2NS w/KCl 20mEq 1,000 ML IV SCH ×3 (03:16→20:06)
[2018-10-22] MEDS: MS Contin 100mg tab ORAL SCH ×2 (05:08→21:06)
[2018-10-22 06:31] LABS: BASOPHILS % (AUTO) 0.7 % (0.0-2.0); HEMATOCRIT 40.5 % (42.0-52.0); HEMOGLOBIN 13.2 G/DL (14.2-18.0); LYMPHOCYTES % (AUTO) 11.6 % (20.0-45.0); MEAN CORPUSCULAR VOLUME 95 FL (80-99); MONOCYTES % (AUTO) 13.7 % (1.0-10.0); NEUTROPHILS % (AUTO) 74.1 % (45.0-75.0); PLATELET COUNT 384 K/UL (150-450); RED BLOOD COUNT 4.25 M/UL (4.70-6.10); RED CELL DISTRIBUTION WIDTH 14.5 % (11.6-14.8); WHITE BLOOD COUNT 8.2 K/UL (4.8-10.8)
[2018-10-22] MEDS: PCA shift volume MISC SCH (07:00)
--- NOTE | 2018-10-22 08:49 | Orthopedic Progress Note ---
Orthopedic - Progress Note Subjective Symptoms: c/o post-op knee pain - pt seen by Dr Damian beth mgt, [employer] AND [employer] INSPECTING DISPATCHER ordered Objective Laboratory Tests Test 10/22/18 05:32 White Blood Count 8.2 K/UL (4.8-10.8) Red Blood Count 4.25 M/UL (4.70-6.10) L Hemoglobin 13.2 G/DL (14.2-18.0) L Hematocrit 40.5 % (42.0-52.0) L Mean Corpuscular Volume 95 FL (80-99) Mean Corpuscular Hemoglobin 31.0 PG (27.0-31.0) Mean Corpuscular Hemoglobin Concent 32.5 G/DL (32.0-36.0) Red Cell Distribution Width 14.5 % (11.6-14.8) Platelet Count 384 K/UL (150-450) Mean Platelet Volume 5.1 FL (6.5-10.1) L Neutrophils (%) (Auto) 74.1 % (45.0-75.0) Lymphocytes (%) (Auto) 11.6 % (20.0-45.0) L Monocytes (%) (Auto) 13.7 % (1.0-10.0) H Eosinophils (%) (Auto) 0.0 % (0.0-3.0) Basophils (%) (Auto) 0.7 % (0.0-2.0) Last 24 Hour Vital Signs Date Time Temp Pulse Resp B/P (MAP) Pulse Ox O2 Delivery O2 Flow Rate FiO2 10/22/18 07:36 14 10/22/18 07:28 98 Nasal Cannula 2.0 28 10/22/18 06:07 98.9 10/22/18 04:00 98.9 94 14 132/81 (98) 94 10/22/18 03:33 17 10/22/18 00:00 98.3 104 16 114/73 (87) 94 10/21/18 23:33 18 10/21/18 21:00 Nasal Cannula 2.0 10/21/18 20:00 98.6 102 22 116/77 (90) 98 10/21/18 19:54 97 Nasal Cannula 2.0 28 10/21/18 19:33 18 10/21/18 16:00 98.2 85 20 97/69 (78) 98 10/21/18 15:33 18 10/21/18 15:03 18 10/21/18 14:33 18 10/21/18 14:20 98.0 82 20 98/64 (75) 96 10/21/18 14:18 18 10/21/18 14:03 18 10/21/18 13:48 18 10/21/18 13:20 98.0 88 20 103/67 (79) 95 10/21/18 12:20 98.0 88 20 103/67 (79) 95 10/21/18 11:50 98.4 93 20 102/66 (78) 94 10/21/18 11:45 98.2 85 18 104/75 (85) 96 10/21/18 11:20 97.6 10/21/18 11:20 97.6 10/21/18 11:15 18 10/21/18 11:00 97.6 81 17 113/76 97 Nasal Cannula 3 10/21/18 11:00 16 10/21/18 10:50 17 10/21/18 10:45 93 18 108/75 97 Nasal Cannula 3 10/21/18 10:30 81 17 101/69 96 Nasal Cannula 3 10/21/18 10:20 80 14 106/68 97 Nasal Cannula 3 10/21/18 10:10 81 14 103/67 95 Nasal Cannula 3 10/21/18 10:00 82 15 110/73 96 Nasal Cannula 3 10/21/18 09:55 86 14 111/77 99 Simple Mask 6 10/21/18 09:48 97.8 87 16 105/70 97 Simple Mask 6 10/21/18 09:47 93 16 98 Intake and Output 10/21/18 10/22/18 19:00 07:00 Intake Total 1880 ml 825 ml Output Total 75 ml 1450 ml Balance 1805 ml -625 ml Intake Oral 300 ml IV Total 1580 ml 825 ml Output Urine Total 1450 ml Estimated Blood Loss 75 ml Laboratory Tests Test 10/22/18 05:32 White Blood Count 8.2 K/UL (4.8-10.8) Red Blood Count 4.25 M/UL (4.70-6.10) L Hemoglobin 13.2 G/DL (14.2-18.0) L Hematocrit 40.5 % (42.0-52.0) L Mean Corpuscular Volume 95 FL (80-99) Mean Corpuscular Hemoglobin 31.0 PG (27.0-31.0) Mean Corpuscular Hemoglobin Concent 32.5 G/DL (32.0-36.0) Red Cell Distribution Width 14.5 % (11.6-14.8) Platelet Count 384 K/UL (150-450) Mean Platelet Volume 5.1 FL (6.5-10.1) L Neutrophils (%) (Auto) 74.1 % (45.0-75.0) Lymphocytes (%) (Auto) 11.6 % (20.0-45.0) L Monocytes (%) (Auto) 13.7 % (1.0-10.0) H Eosinophils (%) (Auto) 0.0 % (0.0-3.0) Basophils (%) (Auto) 0.7 % (0.0-2.0) Wound: clean, dry, intact Drains: none Neuro Status: normal Vascular Status: normal Additional Comments Xray reivewed: Excellent Assessment Post-op Diagnosis POD 1 Procedure Performed Left total knee arthroplasty Plan Plan: PT, pain management, discharge plan - Home with home care and DME saturday , other - ASA 81mg BID and SCDs for DVT ppx. Appreciate Kendra Gao October 22, 2018 08:49
[2018-10-22] MEDS ORDERED: Epzicom tab ORAL SCH (09:00)
[2018-10-22] MEDS: Docusate 100mg cap ORAL SCH ×3 (09:00→18:00)
[2018-10-22] MEDS ORDERED: Isentress 400mg tab ORAL SCH (09:00)
[2018-10-22] MEDS: Aspirin Baby 81mg ORAL SCH ×2 (09:56→18:00)
--- NOTE | 2018-10-22 11:51 | 48 Hour Post Anesthesia Eval ---
Post Anesthesia Evaluation Procedure: L Total Knee Arthroplasty Date of Evaluation: October 22, 2018 Time of Evaluation: 07:04 Blood Pressure Systolic: 133 0: 78 Pulse Rate: 102 Respiratory Rate: 18 Temperature (Fahrenheit): 98.1 O2 Sat by Pulse Oximetry: 95 Airway: patent Nausea: No Vomiting: No Pain Intensity: 7 - Opioid Toerant Hydration Status: adequate Cardiopulmonary Status: Stable Mental Status/LOC: patient returned to baseline Follow-up Care/Observations: 0 Post-Anesthesia Complications: 0 Follow-up care needed: N/A Lawrence Fried MD October 22, 2018 11:51
[2018-10-22] MEDS ORDERED: Vancomycin 1 GM in D5W 275 ML IVPB SCH (14:00)
[2018-10-22] MEDS ORDERED: MS Contin 100mg tab ORAL SCH ×3 (14:47→21:00)
[2018-10-22] MEDS ORDERED: ADDERAL20 MG ORAL (18:32)
[2018-10-22] MEDS ORDERED: KLONOPIN1 MG ORAL (18:32)
[2018-10-22] MEDS ORDERED: MORPHINE SULFA PO (18:32)
[2018-10-22] MEDS ORDERED: LOMOTIL TABLET1 EACH ORAL (18:32)
[2018-10-22] MEDS ORDERED: OPIUM10 MG/1 ML PO (18:32)
[2018-10-22] MEDS ORDERED: ASPIRIN325 MG ORAL (18:32)
[2018-10-22] MEDS ORDERED: OMEGA-3 ACID ETH1 GM PO (18:32)
[2018-10-22] MEDS ORDERED: SILDENAFIL20 MG ORAL (18:32)
[2018-10-22] MEDS ORDERED: CIALIS5 MG PO (18:32)
[2018-10-22] MEDS ORDERED: Naloxone 0.4mg/ml Inj IV PRN (19:15)
--- NOTE | 2018-10-22 19:15 | Consultation ---
DATE OF CONSULTATION: 10/22/2018 CONSULTING PHYSICIAN: Damian Salgado M.D. REFERRING PHYSICIAN: Lion Pelaez M.D. REASON FOR CONSULTATION: Acute pain consult. Dr. Pelaez, Thank you kindly for consulting me to evaluate and render an opinion as to how to proceed in the management of the patient's acute postoperative knee pain after knee replacement surgery yesterday. The patient is an opioid dependent HIV positive gentleman with documented history of narcotic overdose in the past. After his knee replacement surgery, you consulted me to help with his pain management postoperatively. The patient has a complicated narcotic history as discussed above. The patient also has history of noncompliance and benzodiazepine dependence. The patient does use marijuana occasionally as well. I saw the patient at bedside in the intensive care unit with the nurse RN, Gisela. I had detailed discussions with yourself, Dr. Lion Pelaez along with Internal Medicine, Dr. Damian Johnston. PAST MEDICAL HISTORY: 1. Acute postoperative left knee pain status post left total knee arthroplasty by Dr. Lion Pelaez October 21, 2018. 2. HIV positive. 3. Multi-class narcotic dependence including high dose opioids. 4. Benzodiazepine dependence. 5. Active marijuana usage. 6. Anxiety and depression. 7. GERD. 8. Hypercholesterolemia. 9. History of MRSA. 10. History of documented narcotic overdoses requiring hospital admission. MEDICATIONS: At home Abacavir, clonazepam 2 mg at bedtime, darunavir, Cobicistat, fenofibrate, morphine sulfate extended release 200 mg 1 to 2 times per day, Prilosec, oxandrolone 10 mg daily, raltegravir, somatropin, erectile dysfunction drugs, Flomax, testosterone injection. ALLERGIES: No known drug allergies. SOCIAL HISTORY: The patient admits to marijuana usage few times per week. REVIEW OF SYSTEMS: Per Dr. Damian Johnston. PHYSICAL EXAMINATION: VITAL SIGNS: Age 63. Pain level 9/10 on the visual pain scale. Afebrile. Pulse 102 respirations 18, blood pressure 133/78, oxygen saturation on supplemental oxygen. GENERAL: gentleman, in significant distress secondary to pain and anxiety. Severe pain with range of motion of the knee. CARDIOVASCULAR: Detailed cardiopulmonary exam per Dr. Damian jackson. DIAGNOSTIC TESTING: Laboratory studies from October 22, 2018 shows white count 8, hematocrit 41, platelets 384 preoperatively. Further diagnostic testing in the medical record. TREATMENT RECOMMENDATIONS: I have had multiple detailed discussions with yourself, Dr. Pelaez along with Internal Medicine, Dr. Damian Johnston. Also had multiple discussions with the hospital pharmacist, Jean Pierre along with the hospital charge nurse, Marjorie, and the orthopedic floor nurse RNGisela from today, and nurse Damian from yesterday. The patient has a well-documented history of narcotic dependence and high dose usage. I have ordered a toxicology screen to document which narcotics have been used recently. The patient initially stated that he was taking morphine sulfate extended release 100 mg twice a day. I started him on 100 mg q.12 hours for baseline analgesia and started him on high dose Dilaudid MINE ENGINEERING SUPERVISOR with 0.4 mg demand dose at 12-minute lockout and 8 mg for 4-hour limit. I have also added a breakthrough dose of 1 mg intravenous Dilaudid as a breakthrough rescue dose. The patient was sleeping at times intermittently during his first postoperative day. No oversedation was noted. However the patient does have a documented history of narcotic overdoses in the past requiring hospitalization. Earlier this morning, on postop day #1, the nurses reported to me that this patient was found to have 100 mg MS Contin tablets at his bedside and appeared that he was using such. The charge nurse, Marjorie spoke in detail with the patient along with the orthopedic charge nurse Kiran MCCRARY and the orthopedic floor nurse, DEMETRA Higgins. I tried even with the assistance of the systems security analyst to have the patient turn-over all of his home medications. With this patient's history of documented narcotic overdosage in the past, he certainly is at very high risk for respiratory depression and drug overdosing, even if he still has possession of his narcotic agents. These doses of narcotics were extremely high, with doses documented of MS Contin extended release 100 mg tablets. The patient refused adamantly despite multiple requests to turn over his opioid medications. It certainly became quite unsafe for any [facility] physicians to dose the patient with further opioids from the hospital stock, when it was unknown what narcotic agents this patient was taking on his own. I had a detailed discussion was filing clerk Dr. Damian Johnston along with the surgeon, Dr. Lion Pelaez how to best manage this patient's condition. It was determined that the patient needs to be monitored in the intensive care unit with continuous pulse oximetry in closer nurse ratio observation. The patient has a history of documented narcotic-overdosing. The patient has been very noncompliant. The hospital learning and development administrator stated that it was illegal for hospital staff to the patient's medications without his permission. For the safety of the patient, Dr. Mast, Dr. Pelaez, and myself agreed to have the patient transferred to the intensive care unit. Finally, once the patient was transferred to the intensive care unit, he finally relinquished his bag of home medications. The ICU nurse will continue to look to see if the patient has hidden any further pills as certainly the patient has been disagreeable earlier. At this point, since the patient does not seem to have any supply of his own home narcotics, I have now felt comfortable to increase his narcotic doses considerably to help with his pain complaints presently. I spoke with the hospital pharmacist, Jean Pierre. We will restart his MINE ENGINEERING SUPERVISOR. I have increased the dose to 0.5 mg. I have added 15-minute lockout for safety profile. I spoke with the patient, he admitted that he has been taking 200 mg of MS Contin extended release at a time frequently. I have asked the nursing team to dose him now 200 mg. He will continue with 200 mg q.12 hours around the clock, this dose has been ordered to be held for oversedation. The patient will continue on continuous pulse oximetry and ICU monitoring for the time being. I have added a breakthrough dose of 1.5 mg intravenous Dilaudid for breakthrough pain. The patient will continue with his clonazepam on a p.r.n. basis. If the use of marijuana here in the hospital may be beneficial, such an agent should be considered in the future. Damian Salgado M.D. DR: Grace JOB#: [id number] CC:
[2018-10-22] MEDS ORDERED: Milk of Magnesia 30ml Ud ORAL PRN (19:30)
[2018-10-22] MEDS: Tamsulosin 0.4mg cap ORAL SCH (21:07)
[2018-10-22] MEDS ORDERED: Vancomycin 1 GM in D5W 275 ML IVPB ONE (22:00)
[2018-10-22] MEDS ORDERED: PCA HYDROmorphone 30mg/30ml Syr IV PRN (22:00)
--- NOTE | 2018-10-22 23:13 | General Progress Note ---
Assessment/Plan Assessment/Plan: S/P TKR HIV PERIOPERATIVE BLOOD LOSS ANEMIA HISTORYOF DRUG OVER DOSE LONG DISCUSSION HELD WITH FADY AND PATIENT WAS TRANSFERED TO CIU FOR BETTER MONITORING RESUME OF HER PREIO MEDICAITON FOR HIS HIV PAINCONTROL MONITOR CBC DVT PROPHYAL;XIS MONITOR AND FOLLOW INICU. Subjective Date patient seen: October 22, 2018 Time patient seen: 23:11 Allergies: Coded Allergies: No Known Allergies (Unverified , 08/16/15) Subjective S/P GETTING TRANSFER TO I8CU FOR BETTER MONITORING NO JAZ STPAINNO SOB NO PALPIATION Objective Last 24 Hour Vital Signs Date Time Temp Pulse Resp B/P (MAP) Pulse Ox O2 Delivery O2 Flow Rate FiO2 10/22/18 21:00 109 11 126/76 (93) 96 10/22/18 20:00 Nasal Cannula 2.0 10/22/18 20:00 18 10/22/18 20:00 99.1 109 16 126/76 (93) 95 10/22/18 19:55 96 Nasal Cannula 3.0 32 10/22/18 19:52 110 10/22/18 19:00 103 12 138/80 (99) 95 10/22/18 18:00 99 12 134/78 (96) 94 10/22/18 17:00 104 11 140/81 (100) 93 10/22/18 16:02 98.0 10/22/18 16:00 103 13 135/78 (97) 93 10/22/18 15:33 12 10/22/18 14:35 98.0 94 13 133/79 (97) 93 10/22/18 12:00 18 10/22/18 11:51 102 18 95 10/22/18 09:00 Nasal Cannula 2.0 10/22/18 08:00 98.1 102 18 133/78 (96) 95 10/22/18 07:36 14 10/22/18 07:28 98 Nasal Cannula 2.0 28 10/22/18 06:07 98.9 10/22/18 04:00 98.9 94 14 132/81 (98) 94 10/22/18 03:33 17 10/22/18 00:00 98.3 104 16 114/73 (87) 94 10/21/18 23:33 18 Intake and Output 10/21/18 10/22/18 19:00 07:00 Intake Total 1880 ml 825 ml Output Total 75 ml 1450 ml Balance 1805 ml -625 ml Intake Oral 300 ml IV Total 1580 ml 825 ml Output Urine Total 1450 ml Estimated Blood Loss 75 ml Laboratory Tests 10/22/18 05:32: White Blood Count 8.2, Red Blood Count 4.25L, Hemoglobin 13.2L, Hematocrit 40.5L , Mean Corpuscular Volume 95, Mean Corpuscular Hemoglobin 31.0, Mean Corpuscular Hemoglobin Concent 32.5, Red Cell Distribution Width 14.5, Platelet Count 384, Mean Platelet Volume 5.1L, Neutrophils (%) (Auto) 74.1, Lymphocytes ( %) (Auto) 11.6L, Monocytes (%) (Auto) 13.7H, Eosinophils (%) (Auto) 0.0, Basophils (%) (Auto) 0.7 10/22/18 18:30: Urine Opiates Screen PositiveH, Urine Barbiturates Screen Negative, Phencyclidine (PCP) Screen Negative, Urine Amphetamines Screen Negative, Urine Benzodiazepines Screen PositiveH, Urine Cocaine Screen Negative, Urine Marijuana (THC) Screen Negative Height (Feet): 6 Height (Inches): 1.00 Weight (Pounds): 197 General Appearance: WD/WN Neck: supple Cardiovascular: normal rate, regular rhythm Respiratory/Chest: lungs clear Abdomen: non tender, soft Damian Johnston MD October 22, 2018 23:13
[2018-10-23] VITALS (24 sets, daily range): BP systolic 115–137; BP diastolic 69–87
[2018-10-23 05:03] LABS: BASOPHILS % (AUTO) 0.9 % (0.0-2.0); EOSINOPHILS % (AUTO) 0.1 % (0.0-3.0); HEMATOCRIT 38.9 % (42.0-52.0); HEMOGLOBIN 12.9 G/DL (14.2-18.0); LYMPHOCYTES % (AUTO) 18.3 % (20.0-45.0); MEAN CORPUSCULAR VOLUME 95 FL (80-99); MONOCYTES % (AUTO) 15.1 % (1.0-10.0); NEUTROPHILS % (AUTO) 65.5 % (45.0-75.0); PLATELET COUNT 337 K/UL (150-450); RED CELL DISTRIBUTION WIDTH 14.3 % (11.6-14.8); WHITE BLOOD COUNT 8.6 K/UL (4.8-10.8)
[2018-10-23] MEDS: MS Contin 100mg tab ORAL SCH ×3 (05:48→22:39)
[2018-10-23] MEDS ORDERED: PCA shift volume MISC SCH (07:00)
--- NOTE | 2018-10-23 08:16 | Orthopedic Progress Note ---
Orthopedic - Progress Note Subjective Symptoms: c/o post-op knee pain Objective Last 24 Hour Vital Signs Date Time Temp Pulse Resp B/P (MAP) Pulse Ox O2 Delivery O2 Flow Rate FiO2 10/23/18 07:00 101 14 115/77 (90) 98 10/23/18 06:52 97 Nasal Cannula 2.0 28 10/23/18 06:00 104 14 125/81 (96) 97 10/23/18 05:00 106 12 129/86 (100) 98 10/23/18 04:00 Nasal Cannula 2.0 10/23/18 04:00 98.5 104 12 127/81 (96) 96 10/23/18 04:00 12 10/23/18 03:35 110 10/23/18 03:00 107 12 130/87 (101) 97 10/23/18 02:00 12 130/79 (96) 92 10/23/18 01:00 109 11 132/79 (96) 95 10/23/18 00:00 98.3 107 13 122/84 (97) 95 10/23/18 00:00 Nasal Cannula 2.0 10/23/18 00:00 12 10/22/18 23:24 106 10/22/18 23:00 111 16 121/96 (104) 96 111 10/22/18 22:00 111 10 141/87 (105) 94 111 10/22/18 21:00 109 11 126/76 (93) 96 10/22/18 20:00 16 10/22/18 20:00 Nasal Cannula 2.0 10/22/18 20:00 99.1 109 16 126/76 (93) 95 10/22/18 19:55 96 Nasal Cannula 3.0 32 10/22/18 19:52 110 10/22/18 19:00 103 12 138/80 (99) 95 10/22/18 18:00 99 12 134/78 (96) 94 10/22/18 17:00 104 11 140/81 (100) 93 10/22/18 16:02 98.0 10/22/18 16:00 103 13 135/78 (97) 93 10/22/18 15:33 12 10/22/18 14:35 98.0 94 13 133/79 (97) 93 10/22/18 12:00 18 10/22/18 11:51 102 18 95 10/22/18 09:00 Nasal Cannula 2.0 Intake and Output 10/22/18 10/23/18 19:00 07:00 Intake Total 1350 ml 2665.8 ml Output Total 2575 ml 2500 ml Balance -1225 ml 165.8 ml Intake Oral 600 ml 1680 ml IV Total 750 ml 985.8 ml Output Urine Total 2575 ml 2500 ml Laboratory Tests Test 10/22/18 18:30 10/23/18 04:25 Urine Opiates Screen Positive (NEGATIVE) H Urine Barbiturates Screen Negative (NEGATIVE) Phencyclidine (PCP) Screen Negative (NEGATIVE) Urine Amphetamines Screen Negative (NEGATIVE) Urine Benzodiazepines Screen Positive (NEGATIVE) H Urine Cocaine Screen Negative (NEGATIVE) Urine Marijuana (THC) Screen Negative (NEGATIVE) White Blood Count 8.6 K/UL (4.8-10.8) Red Blood Count 4.10 M/UL (4.70-6.10) L Hemoglobin 12.9 G/DL (14.2-18.0) L Hematocrit 38.9 % (42.0-52.0) L Mean Corpuscular Volume 95 FL (80-99) Mean Corpuscular Hemoglobin 31.5 PG (27.0-31.0) H Mean Corpuscular Hemoglobin Concent 33.2 G/DL (32.0-36.0) Red Cell Distribution Width 14.3 % (11.6-14.8) Platelet Count 337 K/UL (150-450) Mean Platelet Volume 5.2 FL (6.5-10.1) L Neutrophils (%) (Auto) 65.5 % (45.0-75.0) Lymphocytes (%) (Auto) 18.3 % (20.0-45.0) L Monocytes (%) (Auto) 15.1 % (1.0-10.0) H Eosinophils (%) (Auto) 0.1 % (0.0-3.0) Basophils (%) (Auto) 0.9 % (0.0-2.0) Wound: clean, dry Drains: none Neuro Status: normal Vascular Status: normal Assessment Procedure Performed left TKA Plan Plan: PT, pain management, d/c drain, discharge plan, discharge to home Additional Comments Events from the date of admission are noted. This patient was well aware that a industrial painter will provide pain control. He was very non- complliant and taking his own supply of pain meds. Multiple attempts for patient to give up his own meds was un-successful until he was admitted to ICU for safety reasons. He then gave up his personal meds. He has been working with PT and anticipate discharge tomorrow. Patient will have pain management with Dr. Thomas after discharge and is already set up for that. No pain meds will be given at the time of discharge as this was already done by Dr. Thomas. I appreciate Dr. Johnston and DR. Salgado expertise with this very difficult patient. Dressing change today. CPM PT for mobilization. Lion Pelaez MD October 23, 2018 08:16
[2018-10-23] MEDS: D5 1/2NS w/KCl 20mEq 1,000 ML IV SCH ×2 (08:35→21:09)
[2018-10-23] MEDS ORDERED: ABACAVIR ORAL SCH (09:00)
[2018-10-23] MEDS ORDERED: LAMIVUDINE ORAL SCH (09:00)
[2018-10-23] MEDS ORDERED: Patient's Own Med - Prezcobix 800/150mg ORAL SCH (09:00)
[2018-10-23] MEDS ORDERED: Rate Change PCA 1 Each MISC PRN (09:00)
[2018-10-23] MEDS: PREZCOBIX ORAL SCH (09:05)
[2018-10-23] MEDS: ABACAVIR ORAL SCH (09:05)
[2018-10-23] MEDS: LAMIVUDINE ORAL SCH (09:05)
[2018-10-23] MEDS: Docusate 100mg cap ORAL SCH ×3 (09:07→17:53)
[2018-10-23] MEDS: Aspirin Baby 81mg ORAL SCH ×2 (09:08→17:52)
[2018-10-23] MEDS: ISENTRESS 400 MG ORAL SCH ×2 (09:33→17:52)
--- NOTE | 2018-10-23 19:30 | Progress Note ---
DATE: 10/23/2018 ACUTE PAIN MANAGEMENT PHYSICIAN PROGRESS NOTE MEDICATIONS: Medication administration record reviewed. Medications include Tylenol, Mylanta, aspirin, Klonopin, Colace, TriCor, iron, Proscar, Dilaudid NATURAL REMEDY CONSULTANT, breakthrough IV Dilaudid p.r.n., milk of magnesia, MS Contin 100 mg q.8 h., Zofran, Protonix, Flomax. LABORATORY STUDIES: On 10/23/2018 shows white count 9, hematocrit 39, platelets 337,000. Urine toxicology screen was done last night on 10/22/2018, was negative for amphetamines, negative for cocaine, negative for marijuana. OBJECTIVE: VITAL SIGNS: Pulse 108, afebrile, respirations 16, blood pressure 120/71, and oxygen saturation 100% on room air. I saw the patient in intensive care unit with the charge nurse. I had multiple discussions with the hospital pharmacist, Jean Pierre to fine-tune the patient's opioid, narcotics. After the patient was dosed with 200 mg of MS Contin yesterday afternoon, the patient became more agreeable and compliant. The high-dose NATURAL REMEDY CONSULTANT was restarted with a 0.5 mg NATURAL REMEDY CONSULTANT demand dose. I later spoke with the nursing team and family that the patient was doing well, so I altered the MS Contin dosing to 100 mg q.8 h. He received a 10 p.m. dose last night as well as of 6 a.m. dose this morning. With this dosing and continued NATURAL REMEDY CONSULTANT unit, the patient has been doing adequately. I spoke with the hospital physical therapist, Denny who stated that the patient is improving. The patient did release all of his own home medications. So, there have been no episodes of oversedation where the patient is taking narcotics, of which the medical team is unaware. With the patient's history of overdosing narcotics, it is a good sign that the patient no longer has access to any home medications. I would continue the NATURAL REMEDY CONSULTANT Dilaudid unit with his current bag supply. Once this is used up, I have instructed the nursing team to discontinue the NATURAL REMEDY CONSULTANT . The patient will continue with breakthrough IV Dilaudid injections p.r.n. He will continue with his MS Contin 100 mg q.8 h. I did encourage frequent dosing of the Klonopin which the patient does take the Klonopin for anxiety and insomnia. Dr. Pelaez is treating the patient for DVT prophylaxis per Dr. Pelaez's own recommendations. Dr. Johnston is following the patient for Internal Medicine issues. The patient's HIV medications have been restarted. I did offer the patient Marinol here in the hospital, so he does use marijuana several times per week at home. The patient declined at this time. Damian Salgado M.D. DR: LANDY JOB#: [id number] CC:
[2018-10-23] MEDS: Tamsulosin 0.4mg cap ORAL SCH (21:09)
[2018-10-24] VITALS (22 sets, daily range): BP systolic 110–138; BP diastolic 70–92
[2018-10-24 05:12] LABS: BASOPHILS % (AUTO) 1.6 % (0.0-2.0); EOSINOPHILS % (AUTO) 1.2 % (0.0-3.0); LYMPHOCYTES % (AUTO) 28.9 % (20.0-45.0); MEAN CORPUSCULAR VOLUME 95 FL (80-99); MONOCYTES % (AUTO) 13.6 % (1.0-10.0); NEUTROPHILS % (AUTO) 54.7 % (45.0-75.0); PLATELET COUNT 397 K/UL (150-450); RED BLOOD COUNT 4.22 M/UL (4.70-6.10); RED CELL DISTRIBUTION WIDTH 14.2 % (11.6-14.8); WHITE BLOOD COUNT 8.4 K/UL (4.8-10.8)
[2018-10-24] MEDS: MS Contin 100mg tab ORAL SCH ×2 (05:37→15:29)
--- NOTE | 2018-10-24 08:16 | Orthopedic Progress Note ---
Orthopedic - Progress Note Subjective Symptoms: c/o post-op knee pain Objective Laboratory Tests Test 10/24/18 04:15 White Blood Count 8.4 K/UL (4.8-10.8) Red Blood Count 4.22 M/UL (4.70-6.10) L Hemoglobin 13.0 G/DL (14.2-18.0) L Hematocrit 40.0 % (42.0-52.0) L Mean Corpuscular Volume 95 FL (80-99) Mean Corpuscular Hemoglobin 30.9 PG (27.0-31.0) Mean Corpuscular Hemoglobin Concent 32.6 G/DL (32.0-36.0) Red Cell Distribution Width 14.2 % (11.6-14.8) Platelet Count 397 K/UL (150-450) Mean Platelet Volume 5.2 FL (6.5-10.1) L Neutrophils (%) (Auto) 54.7 % (45.0-75.0) Lymphocytes (%) (Auto) 28.9 % (20.0-45.0) Monocytes (%) (Auto) 13.6 % (1.0-10.0) H Eosinophils (%) (Auto) 1.2 % (0.0-3.0) Basophils (%) (Auto) 1.6 % (0.0-2.0) Last 24 Hour Vital Signs Date Time Temp Pulse Resp B/P (MAP) Pulse Ox O2 Delivery O2 Flow Rate FiO2 10/24/18 07:00 105 19 137/92 (107) 96 10/24/18 06:00 106 17 118/81 (93) 96 10/24/18 05:00 107 17 116/83 (94) 94 10/24/18 04:00 98.7 105 12 124/74 (91) 94 10/24/18 04:00 12 10/24/18 04:00 Room Air 10/24/18 03:26 97 10/24/18 03:00 107 16 122/76 (91) 96 10/24/18 02:00 110 17 123/81 (95) 96 10/24/18 01:00 110 15 130/83 (99) 95 10/24/18 00:00 Room Air 10/24/18 00:00 95 10/24/18 00:00 98.9 107 17 138/85 (102) 95 10/24/18 00:00 16 10/23/18 23:00 108 15 126/78 (94) 96 10/23/18 22:00 110 18 133/87 (102) 94 10/23/18 21:27 98 Room Air 21 10/23/18 21:00 112 17 137/82 (100) 95 10/23/18 20:00 99.2 111 23 129/76 (93) 96 10/23/18 20:00 Room Air 10/23/18 20:00 106 10/23/18 20:00 12 10/23/18 19:00 110 20 125/79 (94) 96 10/23/18 17:59 106 20 125/79 (94) 95 10/23/18 17:00 100 20 135/82 (99) 95 10/23/18 16:00 103 10/23/18 16:00 98.1 107 20 137/77 (97) 98 10/23/18 16:00 15 10/23/18 16:00 Room Air 10/23/18 15:00 106 20 121/69 (86) 95 10/23/18 14:00 110 15 120/70 (87) 99 10/23/18 13:00 112 16 117/70 (86) 98 10/23/18 12:00 97.9 108 17 120/71 (87) 100 10/23/18 12:00 Room Air 10/23/18 12:00 112 10/23/18 12:00 15 10/23/18 11:00 105 17 120/71 (87) 98 10/23/18 10:00 103 15 120/71 (87) 95 10/23/18 09:00 105 13 121/80 (94) 95 Intake and Output 10/23/18 10/24/18 18:59 06:59 Intake Total 1880 ml 1388.75 ml Output Total 900 ml 2700 ml Balance 980 ml -1311.25 ml Intake Oral 1100 ml 500 ml IV Total 780 ml 888.75 ml Output Urine Total 900 ml 2700 ml Laboratory Tests Test 10/24/18 04:15 White Blood Count 8.4 K/UL (4.8-10.8) Red Blood Count 4.22 M/UL (4.70-6.10) L Hemoglobin 13.0 G/DL (14.2-18.0) L Hematocrit 40.0 % (42.0-52.0) L Mean Corpuscular Volume 95 FL (80-99) Mean Corpuscular Hemoglobin 30.9 PG (27.0-31.0) Mean Corpuscular Hemoglobin Concent 32.6 G/DL (32.0-36.0) Red Cell Distribution Width 14.2 % (11.6-14.8) Platelet Count 397 K/UL (150-450) Mean Platelet Volume 5.2 FL (6.5-10.1) L Neutrophils (%) (Auto) 54.7 % (45.0-75.0) Lymphocytes (%) (Auto) 28.9 % (20.0-45.0) Monocytes (%) (Auto) 13.6 % (1.0-10.0) H Eosinophils (%) (Auto) 1.2 % (0.0-3.0) Basophils (%) (Auto) 1.6 % (0.0-2.0) Wound: clean, dry, intact Drains: none Neuro Status: normal Vascular Status: normal Assessment Post-op Diagnosis POD 3 Procedure Performed Left total knee arthroplasty Plan Plan: discharge to home - home care and DME. outpt pain mgt with Dr. Samuel. rosio portillo 7-10 days Kendra Cohen October 24, 2018 08:16
--- NOTE | 2018-10-24 08:18 | Discharge Summary ---
Discharge Summary Hospital Course Date of Admission October 21, 2018 at 05:23 Date of Discharge 10/24/18 Admitting Diagnosis Left knee arthritis Reason for Hospitalization: s/p left total knee arthroplasty HPI Jericho Guillaume is a 63 year old male who was admitted on October 21, 2018 at 05:23 for Primary Osteoarthritis Of Left Knee Consultations MD Preston, MD Damian Procedures left total knee arthroplasty Hospital Course issues with pain mgt. needed ICU monitoring for tele, continuous pulse ox and increased nsg services. stable by time of d/c Discharge Condition Upon Discharge: improving, stable Discharge Disposition Patient was discharged to home with home health and DME. outpt pain mgt with his PCP Kendra Cohen October 24, 2018 08:18
[2018-10-24] MEDS: Docusate 100mg cap ORAL SCH ×3 (09:00→18:00)
[2018-10-24] MEDS: ABACAVIR ORAL SCH (09:55)
[2018-10-24] MEDS: LAMIVUDINE ORAL SCH (09:55)
[2018-10-24] MEDS: ISENTRESS 400 MG ORAL SCH ×2 (09:55→18:05)
[2018-10-24] MEDS: PREZCOBIX ORAL SCH (09:55)
[2018-10-24] MEDS: Aspirin Baby 81mg ORAL SCH ×2 (09:56→18:06)
[2018-10-24] MEDS: D5 1/2NS w/KCl 20mEq 1,000 ML IV SCH (11:10)
[2018-10-24] MEDS ORDERED: Tamsulosin 0.4mg cap ORAL SCH (21:00)
[2018-10-24] MEDS ORDERED: D5 1/2NS 1000ml IV ONE (21:44)
== END 2018-10-24 21:45 | disposition home health service (06) | DRG 470 ==
LOC: SDSOVERFLO 05:23 → 4E 11:50 → ICU 10-22 14:29
PROC: 0SRD0J9 Replacement of Left Knee Joint with Synthetic Substitute, Cemented, Open Approach (ICD-10-PCS; principal; 2018-10-21 07:00)
DX: M17.12 Unilateral primary osteoarthritis, left knee (principal); F11.20 Opioid dependence, uncomplicated; F13.20 Sedative, hypnotic or anxiolytic dependence, uncomplicated; D50.0 Iron deficiency anemia secondary to blood loss (chronic); F12.90 Cannabis use, unspecified, uncomplicated; F41.9 Anxiety disorder, unspecified; F32.9 Major depressive disorder, single episode, unspecified; K21.9 Gastro-esophageal reflux disease without esophagitis; E78.00 Pure hypercholesterolemia, unspecified; G89.18 Other acute postprocedural pain
CPT/HCPCS: 36415; 80307; 85025; 86850; 86900; 86901; 87081; 87086; 94003; 94150; J2405; J3490